=== PATIENT | male | born 1965 | race Caucasian/White ===

== ENCOUNTER → 2018-12-04 | Outpatient (REF) | payer OTHER ==
[~2018-12-04] VITALS: Ht 177.8 cm; Wt 90.7 kg
[~2018-12-04] MED LIST: ASPIRIN81 MG PO; BUSPIRONE5 MG PO; LISINOPRIL10 MG PO; TERBINAFINE250 M1 PO
[2018-12-04 10:47] VITALS: BP 149/89
== END | disposition home or self-care (01) | DRG 951 ==
LOC: FIORUCCI 10:32
PROVIDERS: ATTEND Surgery
DX: Z12.11 Encounter for screening for malignant neoplasm of colon (principal)